=== PATIENT | female | born 1955 | race Two or more races ===

== ENCOUNTER 2017-04-08 01:37 | Emergency (ER) | payer OTHER ==
[~2017-04-08] VITALS: Ht 149.9 cm; Wt 49.9 kg
[2017-04-08 01:45] VITALS: BP 120/74
[2017-04-08] MEDS ORDERED: AUGMENTIN 875-1 EAC1 ORAL (02:48)
[2017-04-08 03:00] VITALS: BP 118/72
[2017-04-08] MEDS ORDERED: TdaP Vaccine 0.5ml Syr IM ONE (03:00)
[2017-04-08] MEDS ORDERED: Augmentin 875mg Tab ORAL ONE (03:00)
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
== END 2017-04-08 03:00 | disposition home or self-care (01) ==
LOC: EMR 02:04
DX: S60.410A Abrasion of right index finger, initial encounter (principal); W50.3XXA Accidental bite by another person, initial encounter; Y92.9 Unspecified place or not applicable; Z23 Encounter for immunization
CPT/HCPCS: 90471; 90715; 96372; 99283